=== PATIENT | female | born 1995 | race Caucasian/White ===

== ENCOUNTER → 2016-11-24 | Outpatient (CLI) | payer OTHER ==
[2016-07-17 23:20] VITALS: BP 123/67
[~2016-11-24] MED LIST: CONTRAST GIVEN MC PRN; IOHEXOL 300 MG/ML 75 ML VIAL IV ONE
--- NOTE | 2016-11-24 13:45 | RAD ---
INDICATION: Shortness of air COMPARISON: None. TECHNIQUE: Axial CT images obtained through the chest. Intravenous contrast was utilized. 3-dimensional images processed per protocol FINDINGS: No evidence of pneumothorax. No focal airspace consolidation. No thoracic aortic aneurysm. No central pulmonary embolus. In the left lower lung there is a focus of low attenuation along periphery of one of the branches of pulmonary artery but in a region of motion. IMPRESSION: 1. No central pulmonary embolus. There is a small focus of low attenuation along the periphery of one of the small pulmonary arteries in the left lower lung but this is in a region of motion therefore favor that this is secondary to motion artifact rather than a small nonocclusive embolus along the wall. 2. No evidence of focal airspace consolidation or pulmonary edema. PQRS Compliance Statement: One or more of the following individualized dose reduction techniques were utilized for this examination: 1. Automated exposure control 2. Adjustment of the mA and/or kV according to patient size 3. Use of iterative reconstruction technique
== END | disposition home or self-care (01) ==
LOC: CT 11:13
PROVIDERS: ATTEND Internal Medicine Critical Care Medicine
DX: R06.02 Shortness of breath (principal); R07.9 Chest pain, unspecified
CPT/HCPCS: 71275; Q9967